=== PATIENT | male | born 1995 | race Caucasian/White ===

== ENCOUNTER 2018-04-21 14:27 | Emergency (ER) | payer SELFPAY ==
[2018-04-21 14:53] LABS: PLATELET COUNT, AUTOMATED 274 K/uL (150-450)
[2018-04-21 15:07] VITALS: BP 154/108
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
--- NOTE | 2018-04-21 15:32 | BHS - Psychiatric Evaluation ---
ER - Title 25 MHE Evaluation Title 25 Evaluation Patient Detained By: Law Enforcement Referral Source: [place] [employer] Date Patient Detained: Apr 21, 2018 Time Patient Detained: 14:15 Date Senior Living Expires: Apr 24, 2018 Time Senior Living Expires: 14:15 Legal Status: Police Hold: No Legal Status: Residence: [facility] Assessment Data Provided By: Law Enforcement, Other Provider, Family Member(s) HPI/ROS: This is a 23 year old male. Welfare check called to the police by his mother. Reported that he had told his girlfriend that he wanted to kill himself. Texted all of the family saying luhe. Left with a shotgun [place] to [place]. No other property or belonging with him. He says he was not going to kill himself, but going up to be alone, shoot the shotgun to blow off steam. He said that he noted that he was being followed by police and suspected that someone had called them. He says that he called his dad, who is an attourney and explained the situation to him and asked him what he should due. The patient states that he has felt depressed in the past, but not suicidal. He has had some informal counseling in the past, but no diagnosis of major depression. Admit due to SI or Attempt: No Suicide Plan: No Plan (Denies plan, but if he was truly going to kill himself, he did have access.) Alcohol or Drugs Involved: No Is Patient Info Reliable: Yes Is Collateral Info Reliable: Yes Current Home Psych Meds: none Mental Status Exam General Appearance: Well Groomed, Good Eye Contact, Cooperative, Polite, Good Interaction Speech: Clear, Spontaneous, Normal Rate, Normal Rhythm, Normal Volume, Normal Tone Mood: Euthymic Affect: Full and Appropriate, Other (but is a little upset at the situation) Thought Process: Organized, Logical Thought Content: No Suicidal Ideation, No Homicidal Ideation Sensorium: Clear Cognition: Alert & Oriented-Person, Alert & Oriented-Place, Alert & Oriented- Time, Jvbnz-Qamibthm-Vnjjmnwyk Insight Judgment: Intact, Appropriate Current Risk & History Current Dangerous Risk Assessm: Current Suicide Ideation (Based on available data and high risk, will consider this positive suicidal ideation until proven otherwise.) Past Dangerous Risk Assessm: Self-Injurious Behaviors (As above.) Previous Suicide Attempt: No Previous Attempt Previous Psychiatric Illness: No Previous Psychiatric Treatment: No (Informal as noted) Risk Assessment & Disposition Evaluated Risk Assessment: High risk at this time. Further evaluation with psychiatry needed to tease out the details of his case. Impression: Primary Impression: Suicidal ideation Meets Mental Illness Req.: Yes Meets Dangerousness Req.: Yes Emergency Senior Living to be: Upheld Date of Decision: Apr 21, 2018 Time of Decision: 15:47 Patient is Medically Stable at: Yes Disposition: ALEJANDRO LIZ MD Apr 21, 2018 15:32
== END 2018-04-21 17:03 ==
LOC: ER 14:46
DX: R45.851 Suicidal ideations (principal)
CPT/HCPCS: 36415; 80305; 80320; 80329; 81001; 82040; 82247; 82310; 82374; 82435; 82565; 82947; 83735; 84075; 84132; 84155; 84295; 84443; 84450; 84460; 84520; 85025; 99284

== ENCOUNTER 2018-04-21 16:20 | Inpatient (IN) | payer SELFPAY ==
[~2018-04-21] VITALS: Ht 182.9 cm; Wt 81.6 kg
[2018-04-21] MEDS ORDERED: MAG HYD/AL HYD/SIMETH 30ML UDC PO PRN (17:45)
[2018-04-21 19:33] VITALS: BP 140/104
[2018-04-21] MEDS: MELATONIN 3 MG TAB PO SCH (21:59)
[2018-04-22 05:42] VITALS: BP 117/82
[2018-04-22] MEDS: MULTIVITAMINS TAB PO SCH (07:28)
[2018-04-22 13:25] VITALS: BP 108/78
--- NOTE | 2018-04-22 16:48 | HISTORY AND PHYSICAL ---
DATE OF ADMISSION: April 21, 2018 Patient was seen at approximately 0930 hours on the a.m. of 22 April 2018 for note concerning this dictation. PRESENTING PROBLEM/CHIEF COMPLAINT Per patient's own words, "My relationship." HISTORY OF PRESENT ILLNESS This is a pleasant, 23-year-old male who was detained for suicidal ideation with presumed plan of shooting himself with a shotgun. Patient noted to have relationship difficulties with his live-in girlfriend here in [place], [place]. They had been living here about 1-1/2 months. Patient reports fighting with her and this ending in patient leaving town with a shotgun in his vehicle, patient calling family members telling them good-bye, making vague suicidal threats. Law enforcement was summoned and eventually caught up with the patient on the road. Patient known not to have any camping supplies with him, although he was telling police that he was simply going to a cabin to vent some steam. Patient did have a loaded shotgun with him. Patient reports at home it has been difficult. He has been arguing with his girlfriend of 2-1/2 years. They rented an apartment together with the intentions of him resuming school. Patient has not been able to find work since returning to the [facility]. Patient's girlfriend does continue to work. This concerns the patient. Patient admits to playing on-line video games to an extensive amount. This irritates girlfriend as well. However, patient reporting he had been trying to cut back. He does admit, though, that he probably plays them too much. When asked about depressive symptoms, patient reports he was upset with his girlfriend, but he continues to deny any suicidal intent even though he apparently verbalized this to family members. Patient reports his sleep is okay most of the time. Mood is 7/10 to the good today. He denies suicidality. He has an interest in outdoor activities including hunting and shooting and other activities as well and denies any other depressive concerns. Patient's father interviewed via telephone reports that this patient also acted similarly when the relationship dissolved a few years earlier with another female. Patient at this time reports that he does, indeed, want to end the relationship permanently with his girlfriend in that they are no compatible, but then seems to be ambivalent at times when talking to other staff members. Patient denies a history of mandy or psychosis. He does admit to some panic-like attack symptoms in the past, but they are not bothersome in nature. Patient does report upset stomach at times in regard to somatization symptoms, and this may represent a somatic manifestation of underlying anxiety. He denies PTSD, phobias, OCD, or self-harm issues known in the past. MENTAL HEALTH HISTORY Patient has never been in an inpatient unit before. Patient reports having some brief outpatient counseling in the [facility], which he describes as helpful. Patient was at one point placed on Celexa by primary care provider , and patient reports this was not helpful. He took it for a while at low dose. Patient denies any history of suicide attempt. FAMILY PSYCHIATRIC HISTORY Patient seems to be an accurate historian overall and states his grandfather on his mother's side may have had depression and did suffer from alcoholism. Patient reports there may be some other members with depression, including his own brother and other members with depression on the mother's side. Patient also alludes that there may have been a suicide in an uncle that he was not vaguely aware of in the family as well, again on the mother's side. PAST MEDICAL HISTORY Patient reports good overall health. ALLERGIES SEASONAL ALLERGIES. CURRENT MEDICATIONS Not currently on any medications. SOCIAL HISTORY Patient believes to be born in the [facility]. Parents were at the time of his . They when he was about 12. Patient reports overall it was a good childhood, although the time of the divorce was stressful for him. Patient has a younger brother and a younger sister who are reportedly doing well. Patient is a high school graduate who had a good GPA in high school. Patient had a lower GPA in college until he eventually was placed on academic probation. Patient now interested in getting back into school and maybe someday becoming a blood bank technician. The patient has never been in the , never , has no children. He has been with the current relationship for 2 -1/2 years and considers it dysfunctional at this time. They are living together in the [facility]. Patient reports he does okay financially and relies on some help from his father at times, but has saved money as well. 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 LEGAL HISTORY None. SUBSTANCE ABUSE HISTORY Patient reports some marijuana use in the past with what he noted to be positive effects, no negative ones, and some alcohol use in the past as well with no grossly negative effects. Denies any other substance use. PHYSICAL EXAMINATION Please see emergency room note. Notable for: GENERAL: A 23-year-old male cooperative overall with admission to [facility] under an emergency detainment. No acute medical distress. VITAL SIGNS: At time of admission, temperature 98.1, pulse 74, respiratory rate 17, blood pressure 154/108, and pulse oximetry 95 on room air. LABORATORY DATA CBC unremarkable. CMP notable for creatinine slightly elevated at 1.30; otherwise unremarkable. TSH 1.50. Urinalysis unremarkable. Toxicology screen negative for substances of abuse with an undetectable serum alcohol level. MENTAL STATUS EXAMINATION GENERAL APPEARANCE, BEHAVIOR, AND ATTITUDE: This is a cooperative, pleasant, 23 -year-old male making good eye contact, interacting well with this provider and other treatment team staff. No bizarre mannerisms or tics. No periods of tearfulness. Patient appears overall to be a mostly accurate historian. SPEECH: Within normal limits. Regular rate, rhythm, volume, and tone. MOOD: Described as irritated and frustrated being emergency detained and placed on a psychiatric unit, but otherwise improving. AFFECT: Minimally constricted and mood congruent overall. THOUGHT PROCESSES: Logical, goal directed. No loose associations or flight of ideas. THOUGHT CONTENT: Free of auditory or visual hallucinations, ideas of reference , thought broadcasting, delusions, obsessions, compulsions. Patient denying adamantly any suicidal or homicidal ideations; however, historical data obtained from multiple entities prior to admission would indicate that patient was verbalizing suicide intent with plan. SENSORIUM: Clear. COGNITION: Alert and oriented to person, place, time, situation. MEMORY: Immediate, recent, and remote estimated intact. INTELLIGENCE: Average to above based on interview. INSIGHT AND JUDGMENT: Under further evaluation. ASSESSMENT This is a 23-year-old male who is very calm, cooperative, and pleasant on the unit. Patient may be under significant stress and relational discord as well as feeling like he is letting family down. Patient is the oldest member of the siblings. Patient likely having some degree of underlying genetic anxiety. At this time, will try to encourage patient to take sedating antidepressant at night with anxiolytic effects. This will be Remeron. Patient will be encouraged to accept outpatient therapy upon departure, and patient will meet with family members to discuss if longer stay is needed in the hospital versus 10-day extension, or patient could discharge to home. DIAGNOSES PER DIAGNOSTIC AND STATISTICAL MANUAL OF MENTAL DISORDERS, FIFTH EDITION 1. Adjustment disorder with anxious and depressed mood. 2. Partner relational problem. 3. Rule out anxiety disorder, unspecified. 4. Rule out persisting depressive disorder. 5. Patient having supportive family members overall. PLAN 1. Admit to the unit. 2. Necessary precautions to be implemented. 3. Patient will participate in individual and group therapy. 4. Medications will be administered and titrated accordingly. Patient will consider taking Remeron at 15 mg p.o. at bedtime. 5. Collateral information will be obtained. 6. Estimated length of stay three to five days at this time. MTDD
[2018-04-22] MEDS: MIRTAZAPINE 15 MG TAB PO SCH (21:18)
[2018-04-22] MEDS: MELATONIN 3 MG TAB PO SCH (21:18)
[2018-04-22 22:00] VITALS: BP 135/101
[2018-04-23 06:00] VITALS: BP 106/60
[2018-04-23] MEDS: MULTIVITAMINS TAB PO SCH (08:19)
[2018-04-23 13:21] VITALS: BP 112/67
--- NOTE | 2018-04-23 16:30 | BHS Progress Note ---
[facility] - Subjective Progress Notes Subjective Pt seen in treatment team meeting with his mother, father, and brother all present. Pt says he slept well and feels a little groggy this am from the remeron. He is willing to stay on it for a while to see if it takes the edge off of underlying depression and anxiety. His family was very warm and supportive. Pt expressed anger at mother for calling police. Pt understands that once he is ready for discharge he will need to have his guns locked up for a while-- at least until 5th or 6th meeting with therapist, after discussions with therapist, after manifesting progress with improved mood and affect. Pt somewhat negative but resigned to go ahead with treatment. Has been cooperative and engaging in a meaningful was in treatment on the unit. Will continue remeron. Suicidal Ideation: None Homicidal Ideation: None [facility] - Objective Physical Exam Vital Signs Vital Signs 04/22/18 04/23/18 05:42 13:21 Temp 98.6 Pulse 61 Resp 16 B/P (MAP) 112/67 (82) Pulse Ox 96 O2 Delivery Room Air Muscle Strength and Tone: WNL Gait and Station: Steady BH Medications Reviewed: Side Effects, Benefits of Medication, Risks Allergies Reviewed: Yes Mental Status Exam General Appearance: Casual, Well Groomed, Good Eye Contact, Cooperative, Polite , Good Interaction Speech: Clear, Spontaneous, Normal Rate, Normal Rhythm, Normal Volume, Normal Tone Mood: Other (irritable but did smile and laugh appropriately a couple of times at the end of our meeting) Affect: Other (as above Mood) Thought Process: Organized, Logical, Goal Directed Thought Content: No Suicidal Ideation, No Homicidal Ideation, No Delusions, No Auditory Halllucinations, No Visual Hallucinations, No Thought Broadcasting, No Ideas of Reference, No Obsessions, No Compulsions, No Other Sensorium: Clear Cognition: Alert & Oriented-Person, Alert & Oriented-Place, Alert & Oriented- Time, Kegrk-Hzaebkwg-Hetgsmjic Memory: Immediate, Recent, Remote Intelligence: Average Insight Judgment: Fair [facility] Assessment and Plan [id number] Encounter Date: Apr 23, 2018 [id number] Encounter Time: 10:00 [facility] Plan: Admit to Unit, Necessary Precautions, Individual/Group Therapy, Admin /Titrate Meds, Educate Patient Tobacco Medications: Not Appropriate Condition Multpiple Antipsychotics Used: No Problems: (1) Adjustment disorder with mixed anxiety and depressed mood (2) Suicidal ideation Status: Acute EDUARDO GOODMAN MD Apr 23, 2018 16:30
[2018-04-23] MEDS: MELATONIN 3 MG TAB PO SCH (20:20)
[2018-04-23] MEDS: MIRTAZAPINE 15 MG TAB PO SCH (20:20)
[2018-04-23 20:38] VITALS: BP 129/71
[2018-04-23 23:39] VITALS: BP 129/71
[2018-04-24] MEDS: MULTIVITAMINS TAB PO SCH (08:18)
[2018-04-24 09:03] VITALS: BP 120/78
[2018-04-24] MEDS ORDERED: MELA1TAB9 PO (12:43)
[2018-04-24] MEDS ORDERED: MIRT-1 PO (12:44)
[2018-04-24] MEDS ORDERED: MULT-7 PO (12:44)
--- NOTE | 2018-04-24 15:37 | BHS Discharge Summary ---
[facility] Discharge Summary [id number]-[id number] Encounter Date: Apr 24, 2018 Cabt-tr-Hnys Encounter Time: 08:30 Reason-Hosp/Final Diag (DSM-V): (1) Adjustment disorder with mixed anxiety and depressed mood Hospital Course & Plan: Pt was admitted to [facility] on an involuntary fdc done by the police. Pt was maintained on suicide and escape precautions. He was initially angry about being detained, but over his brief hospital stay he did display increasingly brighter affect, was active and involved in his treatment, was increasingly humble and forthcoming. While here his girlfriend of 2 years came to see him and they decided to break up. He handled this well and he said he really appreciated his time here working on his own issues and coping skills which helped him begin to process the break up. We had a team meeting with his mother, father, and brother, which was very productive with all family members sharing their support for him. Pt started remeron 15 mg q hs for anxiety, depression, and sleep, and this was well tolerated. Pt denied SI throughout his hospital stay and he denied that he had intended [place] commit [place] Pt agreed to follow up with therapy and medications at the [facility], and his first appointment was scheduled for the morning after discharge. He agreed to have all of his guns locked up by his mother for the time being immediately after discharge. (2) Suicidal ideation Status: Acute Mental Status Exam General Appearance: Casual, Well Groomed, Good Eye Contact, Cooperative, Polite , Good Interaction Speech: Clear, Spontaneous, Normal Rate, Normal Rhythm, Normal Volume, Normal Tone Mood: Euthymic Affect: Full and Appropriate Thought Process: Organized, Logical, Goal Directed Thought Content: No Suicidal Ideation, No Homicidal Ideation, No Delusions, No Auditory Halllucinations, No Visual Hallucinations, No Thought Broadcasting, No Ideas of Reference, No Obsessions, No Compulsions, No Other Sensorium: Clear Cognition: Alert & Oriented-Person, Alert & Oriented-Place, Alert & Oriented- Time, [id number]-[id number] Memory: Immediate, Recent, Remote Intelligence: Average Insight Judgment: Fair Departure Condition: Improved Discharge to: Home Discharge Instructions Home Meds Reported Medications Multivits,Ca,Minerals/Iron/FA (Thera M Plus Tablet) 1 Each Tablet, PO QDAY 7/19/18 Mirtazapine (REMERON) 15 Mg Tablet, 15 MG PO QHS 04/24/18 Melatonin/Pyridoxine HCl (B6) (Melatonin 3 mg Tablet) 1 Each Tablet, 9 MG PO QHS 04/24/18 Multpiple Antipsychotics Used: No Diet: Regular Special Instructions: Call the crisis line at [phone] for return of symptoms or return to nearest emergency room. EDUARDO GOODMAN MD Apr 24, 2018 15:37
== END 2018-04-24 14:12 | disposition home or self-care (01) | DRG 882 ==
LOC: BHS 16:20
PROVIDERS: ADMIT Psychiatry & Neurology Psychiatry; ATTEND Psychiatry & Neurology Psychiatry
DX: F43.23 Adjustment disorder with mixed anxiety and depressed mood (principal); R45.851 Suicidal ideations; Z81.8 Family history of other mental and behavioral disorders; Z63.0 Problems in relationship with spouse or partner; Z73.3 Stress, not elsewhere classified